=== PATIENT | male | born 1980 | race Caucasian/White ===

== ENCOUNTER 2024-08-23 13:07 | Emergency (ER) | payer OTHER ==
[2024-08-23 13:12] VITALS: RESP 18
--- NOTE | 2024-08-23 13:48 | ED ---
Wound/Laceration HPI - General Chief Complaint: Wound/Laceration Stated Complaint: Left hand injury Time Seen by Provider: 08/23/24 13:43 Source: patient, RN notes reviewed Mode of arrival: ambulatory Limitations: no limitations - History of Present Illness Initial Comments: 44-year-old male presenting for left hand laceration 30 minutes ago. States he was cutting a box in a crawl space and accidentally cut his left hand with a pocket knife near the base of the thumb. Denies blood thinners. Last tetanus was within the last year. No other injuries. - Related Data Previous Rx's Medication Instructions Recorded Cephalexin [Keflex] 500 mg PO Q12H 5 Days #10 cap 08/23/24 Allergies Allergy/AdvReac Type Severity Reaction Status Date / Time No Known Allergies Allergy Verified 08/23/24 13:12 Review of Systems ROS Statement: Those systems with pertinent positive or pertinent negative responses have been documented in the HPI. ROS Other: All systems not noted in ROS Statement are negative. Past Medical History Past Medical History: No Reported History Past Surgical History: No Surgical Hx Reported Past Psychological History: No Psychological Hx Reported Smoking Status: Never smoker Past Alcohol Use History: Rare Past Drug Use History: None Reported General Exam Limitations: no limitations General appearance: alert, in no apparent distress Head exam: Present: atraumatic, normocephalic, normal inspection Left Forearm Wrist exam: Present: normal inspection, full ROM. Absent: tenderness, swelling Hand Wrist exam: Present: full ROM, laceration (1 cm superficial laceration at the ventral base of left thumb with no active bleeding. Full range of motion of all digits, full sensation and cap refill less than 2 seconds). Absent: normal inspection, tenderness, swelling, abrasion Vascular: Present: normal capillary refill, radial pulse. Absent: vascular compromise Neurological exam: Present: alert, oriented X3 Psychiatric exam: Present: normal affect, normal mood Skin exam: Present: warm, dry, intact, normal color. Absent: rash Course Vital Signs 08/23/24 08/23/24 08/23/24 13:08 14:31 14:48 Temperature 97.8 F 98.1 F Pulse Rate 89 69 Respiratory 18 Rate Blood Pressure 201/115 171/103 O2 Sat by Pulse 99 Oximetry 08/23/24 15:02 Temperature 98.1 F Pulse Rate 72 Respiratory 18 Rate Blood Pressure 163/101 O2 Sat by Pulse 97 Oximetry Medical Decision Making - Medical Decision Making Was pt. sent in by a medical professional or institution (, ML, IRRIGATION SUPERVISOR, urgent care, hospital, or penitentiary...) When possible be specific @ -No Did you speak to anyone other than the patient for history (EMS, parent, family, police, friend...)? What history was obtained from this source @ -No Did you review nursing and triage notes (agree or disagree)? Why? @ -I reviewed and agree with nursing and triage notes Were old charts reviewed (outside hosp., previous admission, EMS record, old EKG, old radiological studies, urgent care reports/EKG's, penitentiary records)? Report findings @ -No old charts were reviewed Differential Diagnosis (chest pain, altered mental status, abdominal pain women, abdominal pain men, vaginal bleeding, weakness, fever, dyspnea, syncope, headache, dizziness, GI bleed, back pain, seizure, CVA, palpatations, mental health, musculoskeletal)? @ -Differential Musculoskeletal Muscular strain, contusion, ligament sprain, fracture, arthritis, septic arthritis, bursitis, cellulitis, muscle spasm, nerve compression, DVT, arterial occlusion, herpes zoster, electrolyte abnormality, tumor.... This is not meant to be in all inclusive list EKG interpreted by me (3pts min.). @ -No X-rays interpreted by me (1pt min.). @ -None done CT interpreted by me (1pt min.). @ -None done U/S interpreted by me (1pt. min.). @ -None done What testing was considered but not performed or refused? (CT, X-rays, U/S, labs)? Why? @ -None What meds were considered but not given or refused? Why? @ -None Did you discuss the management of the patient with other professionals (professionals i.e. , ML, IRRIGATION SUPERVISOR, lab, RT, psych nurse, social research assistant, studio associate, teacher, community services officer, catalytic case operator)? Give summary @ -No Was smoking cessation discussed for >3mins.? @ -No Was critical care preformed (if so, how long)? @ -No Were there social determinants of health that impacted care today? How? (Homelessness, low income, unemployed, alcoholism, drug addiction, transportation, low edu. Level, literacy, decrease access to med. care, fci, rehab)? @ -No Was there de-escalation of care discussed even if they declined (Discuss DNR or withdrawal of care, Hospice)? DNR status @ -No What co-morbidities impacted this encounter? (DM, HTN, Smoking, COPD, CAD, Cancer, CVA, ARF, Chemo, Hep., AIDS, mental health diagnosis, sleep apnea, morbid obesity)? @ -None Was patient admitted / discharged? Hospital course, mention meds given and route, prescriptions, significant lab abnormalities, going to OR and other pertinent info. @ -Discharge. This is a 44-year-old male presenting for left hand laceration 1 hour ago. Patient is hypertensive at 201/115. Denies history of hypertension. Denies cardiopulmonary alarm symptoms at this time. On examination, there is a 1 cm superficial laceration and ventral aspect of base of left thumb. No active bleeding. Tetanus is up-to-date. Wound was thoroughly irrigated dressed with skin adhesive and Steri-Strips. Patient was given one-time dose of hydralazine for blood pressure which upon recheck reduces to 163/101. Prescribed short course of Keflex for antibacterial prophylaxis. Appropriate return precautions and follow-up care discussed. Case was discussed with the ED attending Dr. Manuel. Undiagnosed new problem with uncertain prognosis? @ -No Drug Therapy requiring intensive monitoring for toxicity (Heparin, Nitro, Insulin, Cardizem)? @ -No Were any procedures done? @ -No Diagnosis/symptom? @ -Left hand laceration, hypertension Acute, or Chronic, or Acute on Chronic? @ -Acute Uncomplicated (without systemic symptoms) or Complicated (systemic symptoms)? @ -Uncomplicated Side effects of treatment? @ -No Exacerbation, Progression, or Severe Exacerbation? @ -No Poses a threat to life or bodily function? How? (Chest pain, USA, SD, pneumonia, PE, COPD, DKA, ARF, appy, cholecystitis, CVA, Diverticulitis, Homicidal, Suicidal, threat to staff... and all critical care pts) @ -No Disposition Clinical Impression: Laceration of left hand, Hypertension Disposition: HOME SELF-CARE Condition: Stable Instructions (If sedation given, give patient instructions): Laceration (ED) Additional Instructions: Keep wound dry until Steri-Strips fall off. Take Keflex as directed. Follow-up with your PCP regarding your elevated blood pressure. Please return to the Emergency Department if symptoms worsen or any other concerns. Prescriptions: Cephalexin [Keflex] 500 mg PO Q12H 5 Days #10 cap Is patient prescribed a controlled substance at d/c from ED?: No Referrals: Aron Hernandez MD [Primary Care Provider] - 1-2 days Time of Disposition: 14:36
[2024-08-23] MEDS: hydrALAZINE HCL 50 MG TAB PO STA (14:36)
[2024-08-23 14:53] VITALS: TEMP 98.1
[2024-08-23 15:02] VITALS: BP 163/101; PULSE 72
== END 2024-08-23 15:03 | disposition home or self-care (01) ==
LOC: EC 13:07
DX: S61.412A Laceration without foreign body of left hand, initial encounter (principal); I10 Essential (primary) hypertension; W26.8XXA Contact with other sharp object(s), not elsewhere classified, initial encounter
CPT/HCPCS: 99283